=== PATIENT | male | born 1985 ===

== ENCOUNTER → 2017-09-21 | Outpatient (REF) | payer OTHER ==
[2017-09-21 13:16] LABS: SPERM ABNORMAL FORMS WBC'S NOTED
[2017-09-21 13:17] LABS: % NORMAL FORMS 13 % (>=4); IMMOTILITY 32 %; NON PROGRESSIVE MOTILITY (c) 14 %; PROGRESSIVE MOTILITY (a) 54 % (>=32); SPERM# 78.9 M/Ejac (>=39); TOTAL MOTILITY 68 % (>=40); TOTAL PROGRESSIVE SPERM 42.4 M/Ejac.
== END ==
LOC: M LAB REF 11:36
PROVIDERS: ATTEND Obstetrics & Gynecology
DX: Z30.2 Encounter for sterilization (principal)